=== PATIENT | female | born 2000 | race Caucasian/White ===

== ENCOUNTER 2021-01-22 13:58 | Outpatient (CLI) | payer OTHER, SELFPAY ==
--- NOTE | ~2021-01-22 | XR_ITS ---
EXAMINATION: XR soft tissue neck EXAM DATE: 01/22/2021 14:20 INDICATION: J35.2 - Hypertrophy of adenoids. TECHNIQUE: Frontal and lateral projections of the neck soft tissues. There is no prior study for co mparison. FINDINGS: Prevertebral, and adenoidal soft tissue appears to be within normal limits. Epiglottis nor mal in thickness. The odontoid process is intact. The lateral masses of C1 line up with C2. Thoracic Dickinson rods, evidence of mid thoracic dextroscoliosis. IMPRESSION: Normal-appearing adenoidal soft tissue. Reviewed, dictated and finalized at location A. 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
== END 2021-01-22 13:59 | disposition home or self-care (01) ==
PROVIDERS: PCP Family Medicine Sports Medicine; Visit Provider Otolaryngology
DX: J35.2 Hypertrophy of adenoids (principal)
CPT/HCPCS: 70360

== ENCOUNTER → 2021-04-25 00:57 | Outpatient (CLI) | payer OTHER, SELFPAY ==
[2021-04-25 19:38] LABS: SARS-CoV-2 RNA PCR Negative
== END ==
PROVIDERS: PCP Family Medicine Sports Medicine; Visit Provider Surgery
DX: Z01.812 Encounter for preprocedural laboratory examination (principal); Z20.822 Contact with and (suspected) exposure to COVID-19
CPT/HCPCS: C9803; U0003; U0005

== ENCOUNTER 2021-04-29 00:14 | Day surgery (SDC) | payer OTHER, SELFPAY ==
[2021-04-15 15:08] VITALS: BMI 35.4
--- NOTE | 2021-04-28 10:37 | WPDANESEPPF ---
Anes - Initial Pre Proc Eval Procedure: Operation Date: 04/29/21 12:00 Proposed Procedures p Excision Subcutaneous Mass Right Lower Back - Fortino Sousa MD Date/Time: 04/28/21 10:37 Surgeon: Fortino Sousa MD Pre Op Diagnosis: mass of right low back Patient Data Age: 20 Gender: F Height: 1.6 m Weight: 90.9 kg Allergies Allergy/AdvReac Type Severity Reaction Status Date / Time mold AdvReac Mild Rash Verified 04/15/21 15:08 Home Medications Medication Instructions Recorded Confirmed Type bupropion HCl 150 mg 24 hr tablet, 150 mg PO QAM 01/22/21 04/15/21 History extended release dicyclomine 20 mg tablet 20 mg PO TID PRN 01/22/21 04/15/21 History meclizine 25 mg tablet 25 mg PO TID PRN 01/22/21 04/15/21 History omeprazole 20 mg capsule,delayed 20 mg PO DAILY 01/22/21 04/15/21 History release atomoxetine 80 mg capsule 80 mg PO DAILY 03/19/21 04/15/21 History hydroxyzine HCl 10 mg tablet 10 mg PO TID PRN 03/19/21 04/15/21 History multivitamin 1 tablet PO DAILY 03/19/21 04/15/21 History buspirone 15 mg PO BID 04/15/21 04/15/21 History naproxen 500 mg PO Q6-8H PRN 04/15/21 04/15/21 History PMFSH Past Medical History Medical History (Updated 04/28/21 @ 10:38 by Hira Willams MD) Depression History of COVID-19 Hypertrophy of adenoids Obesity Palpable mass of lower back Surgical History Surgical History (Updated 03/19/21 @ 13:52 by Mechelle Plascencia CMA) H/O endoscopy History of back surgery [place] teeth removed Family History Family History Grandparent Heart disease Hypertension Social History Social History Smoking packs per day: 0.5 Smoking cigarettes per day: 10.0 Years smoked: 4 Smoking pack-years: 2.00 Smoking status: Former smoker Tobacco type: cigarettes Alcohol intake: current Substance use: current Substance use type: marijuana Other substance usage details: Marijuana card Last use: 04/14/21 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 Questions were solicited and answers provided to the satisfaction of the patient/family/POA.
[2021-04-29] MEDS: LACTATED RINGERS 1,000 ML 30 ML IV CONT (10:42)
[2021-04-29 11:00] VITALS: BP 106/71; PULSE 103; RESP 18; TEMP 36; O2SAT 100
--- NOTE | 2021-04-29 11:20 | WPDANESEPPF ---
Anes - Initial Pre Proc Eval Procedure: Operation Date: 04/29/21 12:00 Proposed Procedures p Excision Subcutaneous Mass Right Lower Back - Fortino Sousa MD Date/Time: 04/29/21 11:20 Surgeon: Fortino Sousa MD Pre Op Diagnosis: mass of right low back Patient Data Age: 20 Gender: F Height: 5 ft 3 in Weight: 53.4 kg Last Vital Signs Temp 36.0 C L 04/29/21 11:00 Pulse 103 H 04/29/21 11:00 Resp 18 04/29/21 11:00 BP 106/71 04/29/21 11:00 Pulse Ox 100 04/29/21 11:00 Allergies Allergy/AdvReac Type Severity Reaction Status Date / Time mold AdvReac Mild Rash Verified 04/15/21 15:08 Home Medications Medication Instructions Recorded Confirmed Type bupropion HCl 150 mg 24 hr tablet, 150 mg PO QAM 01/22/21 04/29/21 History extended release dicyclomine 20 mg tablet 20 mg PO TID PRN 01/22/21 04/29/21 History meclizine 25 mg tablet 25 mg PO TID PRN 01/22/21 04/29/21 History omeprazole 20 mg capsule,delayed 20 mg PO DAILY 01/22/21 04/29/21 History release atomoxetine 80 mg capsule 100 mg PO DAILY 03/19/21 04/29/21 History hydroxyzine HCl 10 mg tablet 10 mg PO TID PRN 03/19/21 04/29/21 History multivitamin 1 tablet PO DAILY 03/19/21 04/29/21 History buspirone 15 mg PO BID 04/15/21 04/29/21 History naproxen 500 mg PO Q6-8H PRN 04/15/21 04/29/21 History Patient hx anesthesia problems: none and other (motion sickness) Family hx anesthesia problems: none PMFSH Past Medical History Medical History Depression History of COVID-19 Hypertrophy of adenoids Obesity Palpable mass of lower back Surgical History Surgical History H/O endoscopy History of back surgery [place] teeth removed Family History Family History Grandparent Heart disease Hypertension Social History Social History Smoking packs per day: 0.5 Smoking cigarettes per day: 10.0 Years smoked: 4 Smoking pack-years: 2.00 Smoking status: Former smoker Tobacco type: cigarettes Alcohol intake: current Alcohol use details: once per month Substance use: current Substance use type: marijuana Other substance usage details: Marijuana card Last use: 04/14/21 Living arrangements: other 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 Questions were solicited and answers provided to the satisfaction of the patient/family/POA.
[2021-04-29] MEDS: SCOPOLAMINE 1.5 MG PATCH TRANSDERM (11:36)
--- NOTE | 2021-04-29 11:53 | PM.HPGS ---
History of Present Illness History of Present Illness Consent: Risks, benefits, and alternatives of removal of a lipoma right low back have been discussed and questions answered. Patient agrees to proceed with procedure. Chief complaint: mass of right low back Narrative: Danika Ledezma is a 20 year old female that presents to the office at the request of Dr Mcdermott for an evaluation of a right hip mass. I have reviewed these records. Patient reports she first noticed the mass in August 2020 , since then she has notice an increase in size. Patient thought it was a muscle knot and kept trying to massage it out and never went away but did not really bother her. However, over the last month she noticed having an achiness that she believes is caused from the mass. She reports she had COVID 19 in September 2020. Had respiratory symptoms, she reports that she is now taking ProAir inhaler as needed. She reports she did go ahead and has received the COVID 19 vaccine. Review of Systems Constitutional: Constitutional: Reports no additional constitutional complaints, Reports fatigue and Denies malaise Eyes: Eyes: Denies change in vision and Denies loss of vision ENT: Reports Normal hearing present, Denies change in voice, Denies dizziness, Denies hoarseness and Denies sore throat Cardiovascular: Cardiovascular: Denies chest pain, Denies leg edema and Denies dyspnea Respiratory: Respiratory: Denies cough, Denies dyspnea and Denies wheezing Gastrointestinal: Gastrointestinal: Denies hematochezia, Denies change in bowel habits and Denies heartburn Genitourinary: Genitourinary: Denies urinary frequency and Denies urinary incontinence Neurologic: Reports Normal hearing present, Denies confusion, Denies dizziness, Denies loss of vision, Denies memory loss and Denies seizure-like activity Psychiatric: Psychiatric: Denies confusion, Denies depression and Denies memory loss Endocrine: Endocrine: Denies cold intolerance and Reports fatigue Hematologic/Lymphatic: Hematologic/Lymphatic: Denies easy bleeding and Denies easy bruising Allergic/Immunologic: Allergic/Immunologic: Denies wheezing PMFSH Past Medical History Medical History Depression History of COVID-19 Hypertrophy of adenoids Obesity Palpable mass of lower back Surgical History Surgical History H/O endoscopy History of back surgery [place] teeth removed Family History Family History Grandparent Heart disease Hypertension Social History Social History Smoking packs per day: 0.5 Smoking cigarettes per day: 10.0 Years smoked: 4 Smoking pack-years: 2.00 Smoking status: Former smoker Tobacco type: cigarettes Alcohol intake: current Alcohol use details: once per month Substance use: current Substance use type: marijuana Other substance usage details: Marijuana card Last use: 04/14/21 Living arrangements: other 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 Spiritual care concerns: No Meds Home Medications and Allergies Home Medications Medication Instructions Recorded Confirmed Type bupropion HCl 150 mg 24 hr tablet, 150 mg PO QAM 01/22/21 04/29/21 History extended release dicyclomine 20 mg tablet 20 mg PO TID PRN 01/22/21 04/29/21 History meclizine 25 mg tablet 25 mg PO TID PRN 01/22/21 04/29/21 History omeprazole 20 mg capsule,delayed 20 mg PO DAILY 01/22/21 04/29/21 History release atomoxetine 80 mg capsule 100 mg PO DAILY 03/19/21 04/29/21 History hydroxyzine HCl 10 mg tablet 10 mg PO TID PRN 03/19/21 04/29/21 History multivitamin 1 tablet PO DAILY 03/19/21 04/29/21 History buspirone 15 mg PO BID 04/15/21 04/29/21 History naproxen 500 mg PO Q6-8H PRN 04/15/21 04/29/21 History Allergies Allergy
--- NOTE | 2021-04-29 12:00 | WPDHPUPDATE1 ---
History and Physical Update Update Date/Time: 04/29/21 12:00 History and Physical has been reviewed, including an updated exam of the patient. There are NO changes in the patient's condition. Risks, benefits, and alternatives have been discussed and questions answered. Patient agrees to proceed with procedure.
[2021-04-29] MEDS: ceFAZolin 2 GM/D5W 50 ML 2 GM/50 ML BAG IVPB (12:18)
[2021-04-29] MEDS: BUPIVACAINE/EPINEPHRINE 0.5% 10 ML VIAL 50 ML INFILTRATE (12:43)
[2021-04-29 13:30] VITALS: BP 100/57; PULSE 69; RESP 16; O2SAT 100
--- NOTE | 2021-04-29 13:53 | P.OP_ITS ---
Procedure Note - Detailed Date of Procedure 04/29/21 Pre-op Diagnosis Mass of right low back Post-op Diagnosis same Procedure Performed Excision of deep subcutaneous mass Rt. 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 Findings Patient had a deep subcutaneous lipoma which after complete excision appears to have been about 3 x 3 cm in size with perhaps a necrotic center. There appeared to be inspissated necrotic fat in the center of what I felt was the final specimen this was specimen A and it was marked with a suture near the suspected area of fat necrosis. Description of Procedure The patient was placed in the left lateral decubitus position. After a surgical time out confirming patient and procedure the patient was prepped and draped in the usual sterile fashion. Local anesthetic was administered subcutaneously in a straight transverse line directly over the palpable mass. The lesion measured 4 X 2 cm. I dissected straight down to the deep subcutaneous tissues until I ran into a thin capsule that appeared to be the capsule surrounding the lipoma and then I completely excised the lesion with some surrounding subcutaneous fat. The lipoma seemed to be friable and broke into several pieces. Bleeding was controlled with electrocautery. I then placed my index finger into the space created by the excision. There felt to be a 3 X 3 cm thick area of more fat , so I grasped this with an Debby clamp and then completely excised it with Bovie cautery. Upon removal the fat and a 1 cm area of hard nodular tissue was seen and I suspect this is the residual of fat necrosis. I placed a single black silk suture on this area and sent it as specimen A or # 1 and called it the lipoma associated with a suspected raymond of fat necrosis. The wound was closed in several layers. I used un-dyed 2-0 Vicryl deep subcutaneous sutures to obliterate the space created by the excision and then superficial subcutaneous/ dermal sutures to approximate the wound and then a 3-0 undyed Monocryl running subcuticular closure was completed at the skin level. Surgical glue applied as dressing. Patient tolerated this well. Implants none Estimated Blood Loss -5.0 Drains No Packing No Pathology yes (1.Deep subcutaneous Rt. lower back mass with suspected necrotic center.(suture on the necrotic area) 2. Subcutaneous tissue and lipoma of Rt. lower back) Complications No immediate complications Condition stable Disposition same day
[2021-04-29 14:00] VITALS: BP 118/60; PULSE 65
[2021-04-29 14:30] VITALS: BP 111/76; PULSE 69
== END 2021-04-29 14:50 | disposition home or self-care (01) ==
PROVIDERS: PCP Family Medicine Sports Medicine; Visit Provider Surgery
PROC: (CPT 21931; principal; 2021-04-29 12:00)
DX: D17.1 Benign lipomatous neoplasm of skin and subcutaneous tissue of trunk (principal); F32.9 Major depressive disorder, single episode, unspecified; Z86.16 Personal history of COVID-19; Z87.891 Personal history of nicotine dependence; F12.90 Cannabis use, unspecified, uncomplicated
CPT/HCPCS: 21931; 88304; A9270; C9803; J0690; J2250; J2704; J3010; J7120; U0003; U0005

== ENCOUNTER 2022-01-15 09:44 | Outpatient (CLI) | payer OTHER, SELFPAY ==
--- NOTE | ~2022-01-15 | XR_ITS ---
EXAMINATION: XR chest 2V 01/15/2022 09:57 INDICATION: Shortness of breath. History of Covid. PROCEDURE: 2 view chest COMPARISON: No prior studies for comparison FINDINGS: The lungs are clear. The cardiomediastinal silhouette is within normal limits. There are no pleural effusions. There is no pneumothorax suspected. There are thoracic spinal rods with pedic ular screws. Dextroscoliosis. IMPRESSION: 1: NO ACUTE CARDIOPULMONARY DISEASE. Reviewed, dictated and finalized at location B. 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
--- NOTE | 2022-01-18 13:04 | WPDPFTINT ---
PFT Procedure Performed PFT Procedure Performed Spirometry with Pre/Post Bronchodilator Plethysmography (Lung Vol) Diffusing Cap (DLCO) Flow Vol Loop PFT Interpretation Lung volumes were measured with the body plethysmography method. Lung volumes are unremarkable. Spirometry showed normal FVC and FEV1, borderline normal FEV1 to FVC ratio, and diminished mid expiratory flow rates. Following administration of a bronchodilator there was a borderline increase in the FEV 1. Lung diffusion capacity is borderline normal. The flow volume loop is consistent with a small airway disease. Impression: Mild obstructive airway disease in the form of small airway disease with borderline response to bronchodilators. Borderline normal lung diffusion capacity.
== END 2022-01-15 09:45 | disposition home or self-care (01) ==
LOC: ANHPFT 09:46
PROVIDERS: PCP Internal Medicine; Visit Provider Family Medicine
DX: R06.00 Dyspnea, unspecified (principal); R94.2 Abnormal results of pulmonary function studies
CPT/HCPCS: 71046; 94060; 94726; 94729

== ENCOUNTER → 2022-03-22 | Outpatient (CLI) | payer OTHER, SELFPAY ==
--- NOTE | 2022-03-30 16:37 | WPDSLEEPSTUD ---
Sleep Study Date of Study: 03/22/22 Ordering Provider: Vicki Espinoza DO Interpreting Physician: Vicki Espinoza DO Sleep Study Type: Polysomnogram Height: 1.6 m Weight: 93.44 kg Body Mass Index: 36.5 Neck Circumference (inches): 14.5 [place]: 16 Reason for Sleep Study Excessive daytime sleepiness Sleep History The patient is a 21-year-old female with anxiety, depression, bipolar disorder, GERD, IBS, scoliosis, small airway disease and seasonal allergies that had a PSG followed by an MSLT ordered for evaluation excessive daytime sleepiness. The patient had a PSG on 03/18/2021 at [facility]. The patient had a total sleep time of 387.5 minutes and a sleep efficiency of 94.5%. The patient slept in the lateral position throughout the entire study. The patient had an overall AHI of 0.3. She had a sleep latency of 3.5 minutes and a REM latency of 229 minutes. It was recommended that she have a MSLT for further evaluation of her hypersomnia. 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 She denies awakening from sleep short of breath. She rarely awakens at night with heartburn, belching or cough. She constantly snores loud enough that others complain. She rarely has trouble sleeping when she has a cold. She denies waking up gasping for air throughout the night. She denies having breathing problems at night observed by herself or others. She rarely sweats excessively at night. She denies having heart palpitations or irregular heartbeats during the night. She frequently falls asleep during the day but never while driving. She occasionally falls asleep when laughing or crying. She denies experiencing loss of muscle tone when extremely emotional. She constantly has trouble at school or work due to sleepiness. She denies feeling unable to move when waking up her falling asleep. She occasionally experiences vivid dreamlike scenes upon awakening or falling asleep. She denies feeling afraid of going to sleep. She rarely has nightmares. She frequently remembers her dreams. She constantly has thoughts racing through her mind. She constantly feels sad or depressed. She constantly has anxiety. She frequently has muscular tension. She occasionally notices parts of her body jerk. She denies kicking during the night. She denies having crawling and aching feelings in her legs. She denies having leg pain during the night. She rarely grinds her teeth during sleep and rarely awakens with morning jaw pain. She denies being bothered by pain during the day and being awakened by pain during the night. She denies waking up feeling stiff in the morning. She denies waking up with sore or achy muscles. She denies waking up with pain in the neck, spine or other joints. The patient goes to bed at 9:00 a.m. on the weekdays and anywhere from 11:00 p.m. to 1:00 a.m. on weekends. She is able to fall asleep quickly. She does not typically wake up throughout the night. She does, it is to use the restroom. She wakes up at 5:30 p.m. on the weekdays. She does not have a set wake-up time on the weekends. She will stay in bed for 20 minutes after waking up in morning. 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 She currently lives with her girlfriend. She does not consume any caffeinated tea within 2 hours of bedtime. She does not engage in physical exercise before bedtime. She will read and watch television before falling asleep. She will take naps in the afternoon or the evening but they are not refreshing. She quit smoking cigarettes 2 years ago. She will drink 1 caffeinated beverage throughout the day. She will have 1 alcoholic beverage per month. She will smoke marijuana. [facility] Past Medical History Medical History ADHD Allergies Anxiety Bipolar disorder Bulging disc 05/2021 COVID-19 09/2020 Depression GERD (gastroesophageal reflux disease) Hist
[2022-03-30 16:39] VITALS: BMI 36.5
--- NOTE | 2022-03-30 17:07 | WPDSLEEPSTUD ---
Sleep Study Date of Study: 03/22/22 Ordering Provider: Vicki Espinoza DO Interpreting Physician: Vicki Espinoza DO Sleep Study Type: Multiple Sleep Latency Test Height: 1.6 m Weight: 93.44 kg Body Mass Index: 36.5 Neck Circumference (inches): 14.5 [place]: 16 Reason for Sleep Study Excessive daytime sleepiness Sleep History Please see sleep history on PSG report from the previous night. [facility] Past Medical History Medical History ADHD Allergies Anxiety Bipolar disorder Bulging disc 05/2021 COVID-19 09/2020 Depression GERD (gastroesophageal reflux disease) History of COVID-19 Hypertrophy of adenoids IBS (irritable bowel syndrome) Obesity Palpable mass of lower back Scoliosis Surgery 2012 Surgical History Surgical History H/O endoscopy H/O excision of mass Excision of deep subcutaneous lipoma Rt. lower back -04/29/2021 History of back surgery Ancelmo placement 2012 [place] teeth removed 2019 Family History Family History Grandparent Heart disease Hypertension Cancer Father Alcoholism Depression Mother Alcoholism Depression Sibling Depression Other Pulmonary embolism Social History Social History Smoking packs per day: 0.5 Smoking cigarettes per day: 10.0 Years smoked: 4 Smoking pack-years: 2.00 Smoking status: Former smoker Tobacco type: cigarettes Smoking end date: 10/21/19 Alcohol intake: current Alcohol use details: once per month Substance use: current Substance use type: marijuana Other substance usage details: Marijuana card- Smoking marijuana Last use: 04/14/21 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 Spiritual care concerns: No Medications Home Medications Medication Instructions Recorded Confirmed Type omeprazole 20 mg capsule,delayed 20 mg PO DAILY 01/22/21 01/27/22 History release buspirone 15 mg PO BID 04/15/21 01/27/22 History albuterol sulfate 90 mcg/actuation 1 puff INHALATION Q4H PRN 12/30/21 01/27/22 History aerosol inhaler aripiprazole 15 mg tablet 15 mg PO DAILY 12/30/21 01/27/22 History divalproex 250 mg tablet,delayed 250 mg PO Q12H 12/30/21 01/27/22 History release hydroxyzine HCl 50 mg tablet 50 mg PO QID PRN 12/30/21 01/27/22 History meclizine 25 mg tablet 25 mg PO TID PRN #90 tablet 12/30/21 01/27/22 Rx naproxen 500 mg tablet 500 mg PO TID PRN tablet 12/30/21 01/27/22 History propranolol 10 mg tablet 10 mg PO DAILY tablet 12/30/21 01/27/22 History budesonide-formoterol HFA 160 2 puff INHALATION Q12H #10.2 g 01/28/22 Rx mcg-4.5 mcg/actuation aerosol inhaler Sleep Procedure The recording montage for the MSLT includes central EEG (C3-A2, C4-A1) and occipital (O1-A2, O2-A1) derivations, left and right eye electrooculograms (EOGs), mental/submental electromyogram (EMG), and electrocardiogram (EKG). Nap 1 commenced at 6:27:03 AM. There was no sleep onset. Nap 1 was terminated at 6:47:25 AM. The patient said that sleep did not occur. Nap 2 commenced at 8:33:09 AM. Sleep onset was 14 minutes 51 seconds. REM sleep was not achieved. Nap 2 was terminated at 9:03:12 AM. The patient said that sleep did not occur. Nap 3 commenced at 10:28:02 AM. Sleep onset was 5 minutes 58 seconds. REM sleep was not achieved. Nap 3 was terminated at 10:49:29 AM. The patient was unsure if she fell asleep. Nap 4 commenced at 12:32:04 PM. Sleep onset was 12 minutes 26 seconds. REM sleep was not achieved. Nap 4 was terminated at 12:59:59 PM. The patient said that sleep occurred but no dreaming. Nap 5 commenced at 2:35:03 PM. There was no sleep onset. Nap 5 was terminated at 2:55:28 PM. The patient said that sleep did not occur. The mean sleep latency is 14 minutes 39 se
[2022-03-30 17:40] VITALS: BMI 36.5
== END | disposition home or self-care (01) ==
PROVIDERS: PCP Family Medicine; Visit Provider Family Medicine
DX: G47.10 Hypersomnia, unspecified (principal)
CPT/HCPCS: 95805; 95810

== ENCOUNTER 2022-06-09 11:33 | Outpatient (CLI) | payer OTHER, SELFPAY ==
[2022-06-09 19:07] LABS: Alanine Aminotransferase 24 U/L (6-35); Albumin Level 4.3 g/dL (3.5-5.1); Alkaline Phosphatase 66 U/L (38-126); Anion Gap 7 mmol/L (8-16); Aspartate Amino Transferase 45 U/L (14-36); Bilirubin,Total 0.3 mg/dL (0.2-1.3); Blood Urea Nitrogen 9 mg/dL (7-17); Calcium 9.7 mg/dL (8.4-10.2); Carbon Dioxide 29 mmol/L (22-30); Chloride 103 mmol/L (98-107); Cholesterol 218 mg/dL (0-200); Estimated Glomerular Filt Rate > 60; Glucose 86 mg/dL (65-110); HDL Direct 47 mg/dL; Sodium 139 mmol/L (137-145); Triglycerides 110 mg/dL (<150)
[2022-06-09 19:15] LABS: Basophils Percent Auto 0.3 % (0.2-1.2); Eosinophils Absolute Auto 0.1 K/mm3 (0-0.3); Eosinophils Percent Auto 1.9 % (0-4.4); Hemoglobin 13.1 g/dL (12.0-15.0); Immature Granulocyte Absolute 0.04 K/mm3 (0.00-0.031); Immature Granulocyte Percent A 0.6 % (0-0.5); Lymphocytes Absolute Auto 2.86 K/mm3 (0.9-3.2); Lymphocytes Percent Auto 44.5 % (18.3-44.2); Mean Corpuscular HGB Conc 33.6 g/dl (32-36); Mean Corpuscular Hemoglobin 30.3 pg (26-34); Mean Corpuscular Volume 90.1 fl (80-100); Mean Platelet Volume 8.7 fl (7.4-10.4); Monocytes Absolute Auto 0.5 K/mm3 (0.1-0.6); Monocytes Percent Auto 7.6 % (2.6-8.5); Neutrophils Absolute Auto 2.9 K/mm3 (1.3-6.7); Neutrophils Percent Auto 45.1 % (45.5-73.1); Platelet Count Result 350 k/mm3 (150-375); Red Blood Count 4.33 M/mm3 (4.2-5.4); Red Cell Distribution Width 12.7 % (11.5-14.5); White Blood Count 6.4 K/mm3 (4.5-10.0)
[2022-06-09 19:17] LABS: LDL Cholesterol Direct 132 mg/dL
[2022-06-09 19:37] LABS: Hemoglobin A1C 4.6 % (<5.7)
[2022-06-09 19:54] LABS: Valproic Acid 28.9 ug/mL (50-120)
[2022-06-09 20:06] LABS: Vitamin D 25 Hydroxy 30.9 ng/mL
== END 2022-06-09 11:34 | disposition home or self-care (01) ==
LOC: ANHGOSHLAB 11:35
PROVIDERS: PCP Family Medicine; Visit Provider Family Medicine
DX: R73.9 Hyperglycemia, unspecified (principal); R53.83 Other fatigue; Z13.220 Encounter for screening for lipoid disorders; Z51.81 Encounter for therapeutic drug level monitoring; Z79.899 Other long term (current) drug therapy; E55.9 Vitamin D deficiency, unspecified
CPT/HCPCS: 36415; 80053; 80061; 80164; 82306; 83036; 85025

== ENCOUNTER → 2022-10-28 09:30 | Outpatient (CLI) | payer OTHER, SELFPAY ==
--- NOTE | ~2022-10-28 | XR_ITS ---
XR lumbar spine min 4V DATE: 10/28/2022 09:57 INDICATION: Lumbago, sciatica TECHNIQUE: AP, lateral, bilateral oblique views, coned lateral lumbosacral view COMPARISON: None FINDINGS: Bilateral thoracolumbar pedicle screws and rods are noted terminating at L1. There is 30 degrees rotatory levoscoliosis measured from L1 to L4. There is dextro scoliosis of the thoracic spine. No fracture or bone destruction is evident. No spondylolisthesis. Lumbar and lumbosacral interspaces are relatively preserved. The sacroiliac joints are intact. IMPRESSION: Approximately 30 degrees rotatory levoscoliosis of the lumbar spine Dextroscoliosis of the thoracic spine Thoracolumbar pedicle screws and rods terminating at L1 Reviewed, dictated and finalized at location B. 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
== END ==
PROVIDERS: PCP Family Medicine; Visit Provider Family Medicine
DX: M54.40 Lumbago with sciatica, unspecified side (principal)
CPT/HCPCS: 72110

== ENCOUNTER 2023-05-26 11:36 | Outpatient (CLI) | payer OTHER, SELFPAY ==
[2023-05-26 19:12] LABS: Valproic Acid 26.8 ug/mL (50-120)
[2023-05-26 19:23] LABS: Sodium 140 mmol/L (137-145)
[2023-05-26 19:24] LABS: Free T4 Free Thyroxine 0.86 ng/mL (0.78-2.19)
[2023-05-26 19:37] LABS: Basophils Absolute Auto 0.1 K/mm3 (0.0-0.1); Basophils Percent Auto 0.8 % (0.2-1.2); Eosinophils Absolute Auto 0.1 K/mm3 (0-0.3); Eosinophils Percent Auto 1.2 % (0-4.4); Hematocrit 37.5 % (37.0-47.0); Hemoglobin 12.7 g/dL (12.0-15.0); Immature Granulocyte Absolute 0.04 K/mm3 (0.00-0.031); Immature Granulocyte Percent A 0.5 % (0-0.5); Lymphocytes Absolute Auto 2.37 K/mm3 (0.9-3.2); Lymphocytes Percent Auto 31.2 % (18.3-44.2); Mean Corpuscular HGB Conc 33.9 g/dl (32-36); Mean Corpuscular Hemoglobin 30.9 pg (26-34); Mean Corpuscular Volume 91.2 fl (80-100); Monocytes Absolute Auto 0.6 K/mm3 (0.1-0.6); Monocytes Percent Auto 7.4 % (2.6-8.5); Neutrophils Absolute Auto 4.5 K/mm3 (1.3-6.7); Neutrophils Percent Auto 58.9 % (45.5-73.1); Platelet Count Result 288 k/mm3 (150-375); Red Blood Count 4.11 M/mm3 (4.2-5.4); Red Cell Distribution Width 12.6 % (11.5-14.5); White Blood Count 7.6 K/mm3 (4.5-10.0)
[2023-05-26 20:12] LABS: Alanine Aminotransferase 21 U/L (6-35); Albumin Level 4.3 g/dL (3.5-5.1); Alkaline Phosphatase 64 U/L (38-126); Anion Gap 6 mmol/L (8-16); Aspartate Amino Transferase 33 U/L (14-36); Bilirubin,Total 0.4 mg/dL (0.2-1.3); Blood Urea Nitrogen 11 mg/dL (7-17); Calcium 9.3 mg/dL (8.4-10.2); Carbon Dioxide 31 mmol/L (22-30); Chloride 103 mmol/L (98-107); Estimated Glomerular Filt Rate > 60; Glucose 77 mg/dL (65-110); Potassium 4.5 mmol/L (3.4-5.0)
== END 2023-05-26 11:37 | disposition home or self-care (01) ==
LOC: ANHGOSHLAB 11:37
PROVIDERS: PCP Family Medicine; Visit Provider Family Medicine
DX: R00.2 Palpitations (principal); R42 Dizziness and giddiness; F31.9 Bipolar disorder, unspecified; Z79.899 Other long term (current) drug therapy
CPT/HCPCS: 36415; 80053; 80164; 84439; 84443; 85025

== ENCOUNTER 2023-12-07 12:35 | Emergency (ER) | payer OTHER, SELFPAY ==
[2023-12-07 12:41] VITALS: BP 149/85; PULSE 74; RESP 16; TEMP 36.8; O2SAT 100
[2023-12-07] MEDS: SODIUM CHLORIDE 0.9% IV 1,000 ML 999 ML IV CONT (13:29)
[2023-12-07] MEDS: METOCLOPRAMIDE HCL INJ 10 MG/2 ML VIAL IV PUSH (13:29)
[2023-12-07] MEDS: diphenhydrAMINE HCl INJ 50 MG/ML VIAL IV PUSH (13:29)
[2023-12-07] MEDS: KETOROLAC 15 MG/ML VIAL (*BKC) IV PUSH (13:29)
--- NOTE | 2023-12-07 14:27 | ED.HA ---
HPI - Headache General Chief Complaint: Headache Stated Complaint: migraine Time Seen by Provider: 12/07/23 12:56 History of Present Illness HPI Narrative: Patient is a 23-year-old female who presents to the emergency department this afternoon complaining of a migraine headache. Patient admits that she does have a history of migraine headaches and takes a triptan for them but sometimes when that does not alleviate her headaches she comes in and gets a migraine cocktail. Patient states that this is her usual migraine headaches and denies any worse headache of her life sensation. Patient denies any additional symptoms including chest pain, shortness of breath, nausea, vomiting, abdominal pain, dysuria, hematuria, constipation, diarrhea, melena, hematochezia, fevers or chills. Patient also denies any dizziness, lightheadedness, blurry visions, focal weakness, numbness and or tingling. There are no other modifying, alleviating, or precipitating factors at this time. Related Data Home Medications Medication Instructions Recorded Confirmed omeprazole 20 mg capsule,delayed 20 mg PO DAILY 01/22/21 05/26/23 release hydroxyzine HCl 50 mg tablet 50 mg PO QID PRN 12/30/21 05/26/23 naproxen 500 mg tablet 500 mg PO TID PRN 12/30/21 05/26/23 Allergies Allergy/AdvReac Type Severity Reaction Status Date / Time sertraline [From Zoloft] AdvReac Intermediate Nausea and Verified 12/07/23 12:43 Vomiting mold AdvReac Mild Rash Verified 12/07/23 12:43 Review of Systems Review of Systems: All systems are reviewed and are negative unless stated otherwise in the HPI. [facility] Past Medical History Medical History ADHD Allergies Anxiety Bipolar disorder Bulging disc 05/2021 COVID-19 09/2020 Depression GERD (gastroesophageal reflux disease) History of COVID-19 Hypertrophy of adenoids IBS (irritable bowel syndrome) Migraine Obesity Palpable mass of lower back Scoliosis Surgery 2012 Surgical History Surgical History H/O endoscopy H/O excision of mass Excision of deep subcutaneous lipoma Rt. lower back -04/29/2021 H/O toe surgery Procedure 06/08/2022 on ingrown nails. History of back surgery Ancelmo placement 2012 [place] teeth removed 2019 Family History Family History Grandparent Heart disease Hypertension Cancer Father Alcoholism Depression Mother Alcoholism Depression Sibling Depression Other Pulmonary embolism Social History Social History Smoking packs per day: 0.5 Smoking cigarettes per day: 10.0 Years smoked: 4 Smoking pack-years: 2.00 Smoking status: Former smoker Tobacco type: cigarettes Smoking end date: 10/21/19 Alcohol intake: current Alcohol use details: once per month Substance use: current Substance use type: marijuana Other substance usage details: Marijuana card- Smoking marijuana Last use: 04/14/21 Lack of Transportation: No Lack of Food: Never True Current Housing: I Have Housing Concerned About Future Housing: No Difficulty Paying Gas/Electric Bills: No Difficulty Paying for Meds: No Currently Unemployed: No Education: Associate Degree Difficulty w/ Childcare or Family Care: No Living arrangements: other Occupation/Education: occupation 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 HEENT: PERRL, no rhinorrhea, no post nasal drip, oropharynx clear, no temporal tenderness. Neck: Trachea midline, no JVD, no lymphadenopathy. Cardiovascular: Regular rate and rhythm, no murmurs, rubs or gallops, no peripheral edema. Respiratory: Clear to auscultation bilaterally, no tachypnea, no wheezing, no rhonchi, no
[2023-12-07 14:42] VITALS: BP 130/77; PULSE 66; RESP 20; O2SAT 100
== END 2023-12-07 14:44 | disposition home or self-care (01) ==
PROVIDERS: Emergency Provider Emergency Medicine; PCP Family Medicine
DX: G43.909 Migraine, unspecified, not intractable, without status migrainosus (principal); Z87.891 Personal history of nicotine dependence; F90.9 Attention-deficit hyperactivity disorder, unspecified type; F41.9 Anxiety disorder, unspecified; F31.9 Bipolar disorder, unspecified; K21.9 Gastro-esophageal reflux disease without esophagitis
CPT/HCPCS: 96361; 96374; 96375; 99284; J1200; J1885; J2765; J7030

== ENCOUNTER 2023-12-09 10:31 | Emergency (ER) | payer OTHER, SELFPAY ==
[2023-12-09 10:53] VITALS: BP 130/80; PULSE 64; RESP 18; TEMP 37.2; O2SAT 99
--- NOTE | 2023-12-09 11:45 | ED.GENADULT ---
HPI - General Adult General Chief complaint: Headache Stated complaint: Migrane Time Seen by Provider: 12/09/23 11:09 Source: patient Mode of arrival: ambulatory Limitations: no limitations History of Present Illness HPI narrative: This is a 23-year-old female who presents to the ED with chief complaint of migraine headache past 11 days. Reports she was seen here migraine cocktail that helped a little bit but did not resolve her symptoms. Reports she has taken [id number] as well as her Triptan at home since discharge and the headache seems to be continuing. Reports location is top of the scalp and into the occiput. Reports photophobia. States that this headache is a little different than her normal once that she is having more pain compared to her normal ones where she has vertigo . Denies numbness, weakness, speech change, vision change, fever, chill, nausea, vomiting. Related Data Home Medications Medication Instructions Recorded Confirmed omeprazole 20 mg capsule,delayed 20 mg PO DAILY 01/22/21 05/26/23 release hydroxyzine HCl 50 mg tablet 50 mg PO QID PRN 12/30/21 05/26/23 naproxen 500 mg tablet 500 mg PO TID PRN 12/30/21 05/26/23 Allergies Allergy/AdvReac Type Severity Reaction Status Date / Time sertraline [From Zoloft] AdvReac Intermediate Nausea and Verified 12/07/23 12:43 Vomiting mold AdvReac Mild Rash Verified 12/07/23 12:43 Review of Systems Review of Systems: All systems as dictated in [facility] Past Medical History Medical History ADHD Allergies Anxiety Bipolar disorder Bulging disc 05/2021 COVID-19 09/2020 Depression GERD (gastroesophageal reflux disease) History of COVID-19 Hypertrophy of adenoids IBS (irritable bowel syndrome) Migraine Obesity Palpable mass of lower back Scoliosis Surgery 2012 Surgical History Surgical History H/O endoscopy H/O excision of mass Excision of deep subcutaneous lipoma Rt. lower back -04/29/2021 H/O toe surgery Procedure 06/08/2022 on ingrown nails. History of back surgery Ancelmo placement 2012 [place] teeth removed 2019 Family History Family History Grandparent Heart disease Hypertension Cancer Father Alcoholism Depression Mother Alcoholism Depression Sibling Depression Other Pulmonary embolism Social History Social History Smoking packs per day: 0.5 Smoking cigarettes per day: 10.0 Years smoked: 4 Smoking pack-years: 2.00 Smoking status: Former smoker Tobacco type: cigarettes Smoking end date: 10/21/19 Alcohol intake: current Alcohol use details: once per month Substance use: current Substance use type: marijuana Other substance usage details: Marijuana card- Smoking marijuana Last use: 04/14/21 Lack of Transportation: No Lack of Food: Never True Current Housing: I Have Housing Concerned About Future Housing: No Difficulty Paying Gas/Electric Bills: No Difficulty Paying for Meds: No Currently Unemployed: No Education: Associate Degree Difficulty w/ Childcare or Family Care: No Living arrangements: other Occupation/Education: occupation 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 HEAD: Normocephalic, atraumatic. EYES: PERRLA and EOMI. ENT: Nares clear, no rhinorrhea or epistaxis. Mucous membranes moist. Oropharynx without tonsillar hypertrophy exudate or other lesions. NECK: Supple. No adenopathy or masses. No meningeal signs. CHEST: No respiratory distress. Clear to auscultation. No wheezes rales or rhonchi HEART: Regular rate and rhythm. No murmur heard. Normal peripheral pulses. ABDOMEN: Soft
[2023-12-09] MEDS: PROMETHAZINE HCL 25 MG/ML AMPUL 12.5 MG IV PUSH (11:57)
[2023-12-09 12:01] VITALS: BP 115/68; O2SAT 100
[2023-12-09] MEDS: PROCHLORPERAZINE EDISYLATE 10 MG/2 ML VIAL IV PUSH (12:10)
[2023-12-09] MEDS: SODIUM CHLORIDE 0.9% IV 1,000 ML 999 ML IV CONT (12:10)
[2023-12-09] MEDS: diphenhydrAMINE HCl INJ 50 MG/ML VIAL 25 MG IV PUSH (12:10)
[2023-12-09] MEDS: MAGNESIUM SULF 2 GM/WATER 50ML 2 GM/50 ML BAG IVPB (12:11)
[2023-12-09] MEDS: KETOROLAC 15 MG/ML VIAL (*BKC) IV PUSH (12:16)
[2023-12-09 12:23] LABS: Basophils Percent Auto 0.5 % (0.2-1.2); Eosinophils Absolute Auto 0.1 K/mm3 (0-0.3); Eosinophils Percent Auto 1.2 % (0-4.4); Hematocrit 37.6 % (37.0-47.0); Hemoglobin 13.1 g/dL (12.0-15.0); Immature Granulocyte Absolute 0.06 K/mm3 (0.00-0.031); Immature Granulocyte Percent A 0.7 % (0-0.5); Lymphocytes Absolute Auto 2.73 K/mm3 (0.9-3.2); Lymphocytes Percent Auto 33.9 % (18.3-44.2); Mean Corpuscular HGB Conc 34.8 g/dl (32-36); Mean Corpuscular Volume 88.9 fl (80-100); Mean Platelet Volume 8.3 fl (7.4-10.4); Monocytes Absolute Auto 0.5 K/mm3 (0.1-0.6); Monocytes Percent Auto 5.6 % (2.6-8.5); Neutrophils Absolute Auto 4.7 K/mm3 (1.3-6.7); Neutrophils Percent Auto 58.1 % (45.5-73.1); Platelet Count Result 344 k/mm3 (150-375); Red Blood Count 4.23 M/mm3 (4.2-5.4); Red Cell Distribution Width 12.7 % (11.5-14.5); White Blood Count 8.1 K/mm3 (4.5-10.0)
[2023-12-09 12:32] LABS: Alanine Aminotransferase 22 U/L (6-35); Albumin Level 4.5 g/dL (3.5-5.1); Alkaline Phosphatase 83 U/L (38-126); Anion Gap 7 mmol/L (8-16); Aspartate Amino Transferase 25 U/L (14-36); Bilirubin,Total 0.5 mg/dL (0.2-1.3); Blood Urea Nitrogen 12 mg/dL (7-17); Calcium 9.9 mg/dL (8.4-10.2); Carbon Dioxide 28 mmol/L (22-30); Chloride 104 mmol/L (98-107); Estimated Glomerular Filt Rate > 60; Glucose 91 mg/dL (65-110); Potassium 4.3 mmol/L (3.4-5.0); Sodium 139 mmol/L (137-145)
[2023-12-09 13:15] VITALS: BP 117/76; O2SAT 100
[2023-12-09 13:58] VITALS: BP 137/87; PULSE 90; RESP 18; O2SAT 98
== END 2023-12-09 14:00 | disposition home or self-care (01) ==
PROVIDERS: Emergency Provider Physician Assistant; PCP Family Medicine
DX: G43.909 Migraine, unspecified, not intractable, without status migrainosus (principal); K21.9 Gastro-esophageal reflux disease without esophagitis; K58.9 Irritable bowel syndrome, unspecified; E66.9 Obesity, unspecified; F90.9 Attention-deficit hyperactivity disorder, unspecified type; F31.9 Bipolar disorder, unspecified; F41.9 Anxiety disorder, unspecified; Z86.16 Personal history of COVID-19; Z87.891 Personal history of nicotine dependence
CPT/HCPCS: 36415; 80053; 85025; 96365; 96375; 99284; J0780; J1200; J1885; J2550; J3475; J7030

== ENCOUNTER 2024-02-01 10:03 | Outpatient (CLI) | payer OTHER, SELFPAY ==
[2024-02-01 11:50] LABS: Cholesterol 199 mg/dL (0-200); HDL Direct 39 mg/dL; Triglycerides 132 mg/dL (<150)
[2024-02-01 12:01] LABS: LDL Cholesterol Direct 135 mg/dL
[2024-02-01 12:18] LABS: Free T4 Free Thyroxine 0.86 ng/mL (0.78-2.19); Vitamin D 25 Hydroxy 57.5 ng/mL
[2024-02-04 06:39] LABS: Thyroid Peroxidase Antibodies <1 IU/mL (<9)
== END 2024-02-01 10:04 | disposition home or self-care (01) ==
LOC: ANHGOSHLAB 10:05
PROVIDERS: PCP Family Medicine; Visit Provider Family Medicine
DX: E78.5 Hyperlipidemia, unspecified (principal); E55.9 Vitamin D deficiency, unspecified; R79.89 Other specified abnormal findings of blood chemistry
CPT/HCPCS: 36415; 80061; 82306; 84439; 84443; 86376; 86800

== ENCOUNTER 2024-09-12 10:22 | Emergency (ER) | payer OTHER, SELFPAY ==
[2024-09-12 10:34] VITALS: BP 121/78; PULSE 82; RESP 16; TEMP 36.4; O2SAT 98
--- NOTE | 2024-09-12 10:38 | ED.URI ---
HPI - URI/Sore Throat General Chief Complaint: Upper Respiratory Infection Stated Complaint: sore throat / headache Time Seen by Provider: 09/12/24 10:40 Source: patient and RN notes reviewed Mode of arrival: ambulatory Limitations: no limitations History of Present Illness HPI Narrative: 24-year-old female presents with concern of for postnasal drainage, sore throat. Reports she felt warm and has some body aches. She has not taken her temperature. She has not taken any [id number] medications. MD elicited complaint: sore throat and rhinorrhea Related Data Home Medications Medication Instructions Recorded Confirmed hydroxyzine HCl 50 mg tablet 50 mg PO QID 12/30/21 09/12/24 desvenlafaxine succinate 25 mg 25 mg PO DAILY 03/13/24 09/12/24 tablet,extended release 24 hr rimegepant 75 mg disintegrating 75 mg PO DAILY PRN Migraine 09/12/24 09/12/24 tablet (Nurtec ODT) Headache Allergies Allergy/AdvReac Type Severity Reaction Status Date / Time sertraline [From Zoloft] AdvReac Intermediate Nausea and Verified 09/12/24 10:40 Vomiting mold AdvReac Mild Rash Verified 09/12/24 10:40 Review of Systems Review of Systems: CONSTITUTIONAL: Reports malaise, tactile fever. EYES: Denies visual changes, redness, or discharge. ENT: Reports rhinorrhea, congestion, and sore throat. CARDIOVASCULAR: Denies chest pain, palpitations, or edema. RESPIRATORY: Denies cough. Denies dyspnea. GASTROINTESTINAL: Denies abdominal pain, nausea, vomiting, diarrhea SKIN: Denies rash or itching. MUSCULOSKELETAL: Denies myalgia. NEUROLOGIC: Denies headache. All systems reviewed & are unremarkable except as noted in HPI and below PMFSH Past Medical History Medical History (Updated 09/12/24 @ 10:49 by Anjali Black NP) ADHD Allergies Anxiety Bipolar disorder Bulging disc 05/2021 COVID-19 09/2020 Depression GERD (gastroesophageal reflux disease) History of COVID-19 Hypertrophy of adenoids IBS (irritable bowel syndrome) Migraine Obesity Palpable mass of lower back Scoliosis Surgery 2013 Surgical History Surgical History H/O endoscopy H/O excision of mass Excision of deep subcutaneous lipoma Rt. lower back -04/29/2021 H/O toe surgery Procedure 06/08/2022 on ingrown nails. History of back surgery Ancelmo placement 2012 [place] teeth removed 2019 Family History Family History Grandparent Heart disease Hypertension Cancer Father Alcoholism Depression Mother Alcoholism Depression Sibling Depression Other Pulmonary embolism Social History Social History Smoking packs per day: 0.5 Smoking cigarettes per day: 10.0 Years smoked: 4 Smoking pack-years: 2.00 Smoking status: Former smoker Tobacco type: cigarettes Smoking end date: 10/21/19 Alcohol intake: current Alcohol use details: once per month Substance use: current Substance use type: marijuana Other substance usage details: Marijuana card- Smoking marijuana Last use: 04/14/21 Do You Feel Safe in your Home?: Yes Lack of Transportation: No Lack of Food: Never True Current Housing: I Have Housing Concerned About Future Housing: No Difficulty Paying Gas/Electric Bills: No Difficulty Paying for Meds: No Currently Unemployed: No Education: Associate Degree Difficulty w/ Childcare or Family Care: No Living arrangements: other Occupation/Education: occupation 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 There is no relevant family history pertinent to the presenting complaint Exam Narrative: GENERAL: Well-appearing, well-nourished, and in no acute distress. HEAD: Normocephalic EYES: PER
[2024-09-12 10:44] LABS: EDSTREPNEGPOS1 Negative (Negative)
== END 2024-09-12 10:56 | disposition home or self-care (01) ==
PROVIDERS: Emergency Provider Nurse Practitioner; PCP Family Medicine
DX: J06.9 Acute upper respiratory infection, unspecified (principal); Z79.899 Other long term (current) drug therapy; Z87.891 Personal history of nicotine dependence
CPT/HCPCS: 87081; 87880; 99213; G0463

== ENCOUNTER 2024-12-25 11:42 | Emergency (ER) | payer OTHER, SELFPAY ==
--- NOTE | 2024-12-25 12:05 | ED.URI ---
HPI - URI/Sore Throat General Chief Complaint: Upper Respiratory Infection Stated Complaint: Sore Throat/Cough Time Seen by Provider: 12/25/24 12:08 Source: patient Mode of arrival: ambulatory Limitations: no limitations History of Present Illness HPI Narrative: Kylie is a 24-year-old female patient presenting to the clinic today with complaints of sore throat, cough, congestion, and body aches. She reports symptoms started on Tuesday with a sore throat. She reports her highest temperature was 99.5? F. elicited complaint: sore throat and nasal congestion Related Data Home Medications ?Medication ?Instructions ?Recorded ?Confirmed ?Last Taken ?Type hydroxyzine HCl 50 mg tablet 50 mg PO QID 12/30/21 09/12/24 Unknown History desvenlafaxine succinate 25 mg 25 mg PO DAILY 03/13/24 09/12/24 Unknown History tablet,extended release 24 hr rimegepant 75 mg disintegrating 75 mg PO DAILY PRN Migraine 09/12/24 09/12/24 Unknown History tablet (Nurtec ODT) Headache Allergies Allergy/AdvReac Type Severity Reaction Status Date / Time sertraline (From Zoloft) AdvReac Intermediate Nausea and Verified 09/12/24 10:40 Vomiting mold AdvReac Mild Rash Verified 09/12/24 10:40 Review of Systems Review of Systems: Pertinent positives per HPI. Patient denies any fever, chills, rash, visual changes, dizziness, shortness of breath, chest pain, palpitations, nausea, vomiting, diarrhea, constipation, abdominal pain, or any urinary issues. [facility] Past Medical History Medical History Migraine COVID-19 09/2020 Bulging disc 05/2021 ADHD Bipolar disorder IBS (irritable bowel syndrome) GERD (gastroesophageal reflux disease) Anxiety Allergies Scoliosis Surgery 2013 Obesity Palpable mass of lower back History of COVID-19 Depression Hypertrophy of adenoids Surgical History Surgical History H/O toe surgery Procedure 06/08/2022 on ingrown nails. H/O excision of mass Excision of deep subcutaneous lipoma Rt. lower back -04/29/2021 H/O endoscopy [place] teeth removed 2019 History of back surgery Ancelmo placement 2012 Family History Family History Grandparent Heart disease Hypertension Cancer Father Alcoholism Depression Mother Alcoholism Depression Sibling Depression Other Pulmonary embolism Social History Social History Smoking packs per day: 0.5 Smoking cigarettes per day: 10.0 Years smoked: 4 Smoking pack-years: 2.00 Smoking status: Former smoker Tobacco type: cigarettes Smoking end date: 10/21/19 Alcohol intake: current Alcohol use details: once per month Substance use: current Substance use type: marijuana Other substance usage details: Marijuana card- Smoking marijuana Last use: 04/14/21 Do You Feel Safe in your Home?: Yes Lack of Transportation: No Lack of Food: Never True Current Housing: I Have Housing Concerned About Future Housing: No Difficulty Paying Gas/Electric Bills: No Difficulty Paying for Meds: No Currently Unemployed: No Education: Associate Degree Difficulty w/ Childcare or Family Care: No Living arrangements: other Occupation/Education: occupation Additional occupation/education comments: [employer] Spiritual care concerns: No Comments At the time of my signature, I reviewed and agree with the nursing past medical, surgical, social, and family history. There is no relevant family history pertinent to the patient complaint. Exam Narrative: General: Well-developed, morbidly obese, in no apparent distress Head: Normocephalic, atraumatic Eyes: Pupils equally round and reactive to light bilaterally, EOM intact, sclera and conjunctive clear, no discharge, lids normal Ears: TMs intact and clear, ear canals clear, no drainage, grossly hearing normal. Nose: Nares patent, clear discharge, no inflammation, no sinus tenderness. Mouth: Oral pharynx without lesions or masses, good dentition, MMM. Neck: Supple, trachea midline, no enlargement of anterior or posterior cervical nodes, no thyroid masses or goiter palpable. Cardio: Regular rate and rhythm, s1 and s2 normal, no murmur appreciated. Resp: Clear to auscultation bilaterally, no rhonchi, rales, wheezing or rubs Course Course Emergency Course: Portions of this record may have been created with voice recognition software. Level of Care: Express Care Visit Vital Signs Vital signs: Vital Signs Temperature 36.6 C 12/25/24 12:06 Pulse Rate 81 12/25/24 12:06 Respiratory Rate 16 12/25/24 12:06 Blood Pressure 123/85 12/25/24 12:06 Pulse Oximetry 100 12/25/24 12:06 Temperature 36.6 C 12/25/24 12:06 Pulse Rate 81 12/25/24 12:06 Respiratory Rate 16 12/25/24 12:06 Blood Pressure 123/85 12/25/24 12:06 Pulse Oximetry 100 12/25/24 12:06 Vital signs reviewed MDM - URI/Sore Throat MDM Narrative Medical decision making narrative: At the time of visit patient is resting comfortably on the exam table. Patient appears to be nontoxic. Labs: COVID testing was positive in the clinic today. Influenza and strep test were negative. We will send strep for culture. Plan: Patient has COVID-19. Supportive measures were discussed with the patient and they voiced understanding discharge instructions and agrees to treatment plan. Return precautions reviewed Differential Diagnosis Differential diagnosis: Likely upper respiratory infection, otitis media, sinusitis, viral infection, bronchitis, influenza, pharyngitis and other (COVID) Discharge Plan Discharge Clinical Impression: COVID-19 Patient Disposition: Home, Self-Care Condition: Stable Instructions: Antibiotic Form, How to Recover from COVID-19 at Home (ED) Additional Instructions: COVID testing is positive. Influenza testing and strep testing were negative Increase fluids and stay well hydrated Tylenol/motrin for pain/fever Flonase and OTC antihistamines as directed Vicks vapor rub to open sinuses Sinus rinses for congestion Cepacol spray, cough drops, throat lozenges, warm tea with honey/lemon, gargle salt water to soothe throat BRAT diet for diarrhea Clear liquids x 24 hours then advance as tolerated for nausea/vomiting Go to the ED if you develop a worsening in your condition- high fever not controlled by Tylenol or Motrin, dehydration, weakness, lethargy, shortness of breath, or chest pain. Follow up with your PCP in 3-5 days if symptoms persist. Patient Language: Occitan Prescriptions: No Action Nurtec ODT 75 mg tablet,disintegrating 75 mg PO DAILY PRN (Reason: Migraine Headache) clonazepam 0.5 mg tablet 0.5 mg PO .PRN Qty: 30 1RF desvenlafaxine succinate 25 mg tablet extended release 24 hr 25 mg PO DAILY hydroxyzine HCl 50 mg tablet 50 mg PO QID bupropion HCl 150 mg tablet extended release 24 hr 150 mg PO QAM Qty: 90 0RF rizatriptan [Maxalt-MECHANICAL COMMISSIONING ENGINEER] 10 mg tablet,disintegrating See Rx Instructions PO .COMPLEX Qty: 27 0RF Rx Instructions: take 1 tab at onset of headache; if no relief may repeat 1 tab after at least 2 hrs; max = 2 tabs/24 hr PO ondansetron 4 mg tablet,disintegrating 4 mg PO Q8H PRN (Reason: nausea and vomiting) Qty: 30 0RF pantoprazole 40 mg tablet,delayed release (DR/EC) 40 mg PO QAM Qty: 90 1RF meclizine 25 mg tablet 25 mg PO QID PRN (Reason: Vertigo) Qty: 120 1RF guanfacine 1 mg tablet 3 mg PO QHS Qty: 120 0RF Rx Instructions: Take 3 tab by mouth at bedtime. Increase by 1 tablet every 4 days until ADHD symptoms improve. Max dose: 4 tabs/day gabapentin 300 mg capsule 300 mg PO TID PRN (Reason: only take PRN) Qty: 90 1RF naproxen 500 mg tablet 500 mg PO BID Qty: 180 0RF Follow-up/Referrals: Vicki Espinoza DO [Primary Care Provider] - Quality NIHSS Nursing Documentation ED NIHSS nursing documentation: reviewed/agree
[2024-12-25 12:06] VITALS: BP 123/85; PULSE 81; RESP 16; TEMP 36.6; O2SAT 100
[2024-12-25 12:41] LABS: EDCOVIDSCREEN Positive (Negative); EDINFLUASCREEN Negative (Negative); EDINFLUBSCREEN Negative (Negative); EDSTREPNEGPOS1 Negative (Negative)
== END 2024-12-25 12:34 | disposition home or self-care (01) ==
PROVIDERS: Emergency Provider Nurse Practitioner Family; PCP Family Medicine
DX: U07.1 COVID-19 (principal); Z87.891 Personal history of nicotine dependence; K21.9 Gastro-esophageal reflux disease without esophagitis; E66.9 Obesity, unspecified; Z68.41 Body mass index [BMI] 40.0-44.9, adult; F41.9 Anxiety disorder, unspecified; F32.A Depression, unspecified; Z86.16 Personal history of COVID-19
CPT/HCPCS: 87081; 87426; 87804; 87880; 99213; G0463

== ENCOUNTER 2025-06-26 15:15 | Outpatient (NON) | payer OTHER, SELFPAY ==
--- OUTSIDE RECORDS SUMMARY | 2025-06-26 15:22 | XMS_ITS | Encounter Summary ---
Author Organization [facility] Address [address] Attn: [place] [address] Care Team Providers Care Inbound Customer Service Agent Name Role Phone Deb Russo MD Primary Care Provider [phone] Encounter Details Date Type Department Care Team (Late st Contact Info) Description 1999 Inpatient Historical Kristen Hartley MD [address] [place] [id number] Single liveborn, born in hospital, delivered without mention of delivery (Primary Dx) Social History Tobacco Use Types Packs/Day Years Used Date Smoking Tobacco: Never Assessed Comments Unknown Sex and Gender Information Value Date Recorded Sex Assigned at Not on file Legal Sex Female 2:41 AM 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 Gender Identity Not on file Sexual Orientation Not on file documented as of this encounter Plan of Treatment Not on file documented as of this encounter Visit Diagnoses Diagnosis Single liveborn, born in hospital, delivered without mention of delivery- Primary documented in this encounter Additional Health Concerns Infection Onset Date Last Indicated Resolved Time R/O COVID-19 10/02/2020 10/02/2020 10/02/2020 4:48 PM 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 COVID-19 10/04/2020 10/04/2020 11/03/2020 1:16 AM 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 documented as of this encounter Care Teams Inbound Customer Service Agent Relationship Specialty Start Date End Date Deb Russo MD [address] [facility] [address] [place] [id number] PCP - General Family Practice 08/21/19 documented as of this encounter
--- OUTSIDE RECORDS SUMMARY | 2025-06-26 15:22 | XMS_ITS | Encounter Summary ---
Author Organization [facility] Address [address] [place] [address] Care Team Providers Care Speed Operator Name Role Phone Deb Russo MD Primary Care Provider [phone]- [phone] Encounter Details Date Type Department Care Team (Late st Contact Info) Description 1999 Outpatient Historical [facility] - [facility] [address] [id number] Jennifer Ma MD NO ADDRESS ON FILE Social History Tobacco Use Types Packs/Day Years Used Date Smoking Tobacco: Never Assessed Comments Unknown Sex and Gender Information Value Date Recorded Sex Assigned at Not on file Legal Sex Female 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 Gender Identity Not on file Sexual Orientation Not on file documented as of this encounter Plan of Treatment Not on file documented as of this encounter Visit Diagnoses Not on filedocumented in this encounter Additional Health Concerns Infection Onset Date Last Indicated Resolved Time R/O COVID-19 10/02/2020 10/02/2020 10/02/2020 4:48 PM NAIL WELTER COVID-19 10/04/2020 10/04/2020 11/03/2020 1:16 AM NAIL WELTER documented as of this encounter Care Teams Speed Operator Relationship Specialty Start Date End Date Deb Russo MD [address] [place] [address] PCP - General Family Practice 08/21/19 documented as of this encounter
--- OUTSIDE RECORDS SUMMARY | 2025-06-26 15:22 | XMS_ITS | Clinical Summary ---
Author Organization [facility] Address [address] [place] [address] Care Team Providers Care Personnel Clerk Name Role Phone Vicki Espinoza DO Primary Care Provider [phone]- [phone] Source Comments [facility],non-owned Affiliates and Associated Physician Practices is amultiple site organization consisting of ambulatory clinics and hospital sitesin [place], [place], [place]. This disclosure is being madepursuant to the Care Everywhere program and may not contain all information available regarding this patient. Last updated 18.[facility] Allergies Active Allergy Reactions Criticality Noted Date Comments Lactose GI Discomfort Medium 01/28/2021 Zoloft Nausea and/or Vomiting,Dizziness,Headache Medium 06/18/2024 Medications * Be aware that medications may not be up to date on this document. Alwaysverify current medications with the patient. albuterol HFA (PROVENTIL; VENTOLIN; PROAIR) 108 (90 Base) MCG/ACT inhaler Inhale 2 (two) puffs by mouth every 6 hours as needed 1 Active SYMBICORT 160-4.5 MCG/ACT inhaler Inhale 2 (two) puffs by mouth 2 times daily 2 Active hydrOXYzine HCl (ATARAX) 50 MG tablet Take 1 (one) tablet by mouth 4 times daily as needed 2 Active fluticasone propionate (FLONASE) 50 MCG/ACT nasal spray Kismet 1 (one) spray into each nostril once daily 2 Active gabapentin (Neurontin) 300 MG capsule Take 1 (one) capsule by mouth 2 times daily Active naproxen (Naprosyn) 500 MG tablet Take 1 (one) tablet by mouth 2 times daily 4 Active meclizine (Antivert) 25 MG tablet Take 1 (one) tablet by mouth 2 times daily 4 Active cetirizine (ZyrTEC) 10 MG tablet Take 1 (one) tablet by mouth once daily Active Vraylar 3 MG capsule Take 1 (one) capsule by mouth once daily 4 Active buPROPion XL 24hr (Wellbutrin-XL) 300 MG tablet Take 1 (one) tablet by mouth every morning 4 Active clonazePAM (KlonoPIN) 0.5 MG tablet Take 1 (one) tablet by mouth 2 times daily Active multivitamin daily tablet Take 1 (one) tablet by mouth daily with food Active vitamin D3 (Cholecalcifero l) 25 MCG (1000 UNITS) tablet Take 5 (five) tablets by mouth once daily Active desvenlafaxine succinate ER 24hr (Pristiq) 50 MG tablet 4 Active cyanocobalamin (Vitamin B-12) 100 MCG tablet Take 1 (one) tablet by mouth once daily Active ibuprofen (Motrin) 600 MG tablet Take 1 (one) tablet by mouth every 6 hours as needed for Pain 30 tablet 4 Active oxyCODONE, immediate release, (Roxicodone) 5 MG tabletIndicatio ns:Nasal obstruction Take 1 (one) tablet by mouth every 6 hours as needed for Pain 12 tablet 4 Active Additional Information Patient not taking.Reported on 11/09/2024 acetaminophen (Tylenol) 325 MG tablet Take 2 (two) tablets by mouth every 6 hours as needed for Fever or Pain Maximum allowable Acetaminophen amount = 4 Grams (4000 mg) / 24 hours. 60 tablet 4 Active topiramate (Topamax) 25 MG tabletIndicatio ns:Vestibular migraine,Migrai ne with aura and without status migrainosus, not intractable 25 mg in am and 50 mg at night 90 tablet 5 5 Active rizatriptan (Maxalt) 10 MG tabletIndicatio ns:Vestibular migraine,Migrai ne with aura and without status migrainosus, not intractable,Jad rainous vertigo Take 1 tab by mouth once at first sign of migraine. May repeat one time after 2 hours if needed. 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 (F LUZONE; FLULAVAL; FLUARIX; AFLURIA QUADRIVALENT; 6MO+), 0.5 ML (IIV4) 11/06/2020,08/21/2019,10/08/2018 TDAP (7yrs+) 06/07/2021 Family History Medical History Relation Name Comments Cancer - Breast Maternal Grandmother In r emission Relation Name Status Comments Brother Alive Father Alive Maternal Grandmother Mother Alive Sister Alive Social History Tobacco Use Types Packs/Day Years Used Date Smoking Tobacco: Former Cigarettes 0.5 4 2 015 - 2018 Smokeless Tobacco: Never Tobacco Cessation:Counseling Given: Not Answered Alcohol Use Standard Drinks/Week Comments Yes 0 (1 standard drink = 0.6 oz pur e alcohol) rarely AUDIT-C Answer Date Recorded Q1: How often do you have a drink containing alc ohol? Monthly or less 02/23/2022 Q2: How many drinks containi ng alcohol do you have on a typical day when you are drinking? 1 or 2 02/23/2022 Q3: How often do you have si x or more drinks on one occasion? 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 Gender Identity Female 08/16/2021 8:52 PM CDT Sexual Orientation Choose not to disclose 2020 8:52 PM CDT Last Filed Vital Signs Vital Sign Reading Time Taken Comments Blood Pressure 126/84 03/11/2025 3:29 PM CDT Pulse 103 03/11/2025 3:29 PM CDT Temperature 36.2 C (97.2 F) 11/07/2024 3:31 PM COFFEE ROASTER HELPER Respiratory Rate 12 11/07/2024 4:10 PM COFFEE ROASTER HELPER Oxygen Saturation 98% 03/11/2025 3:29 PM CDT Inhaled Oxygen Concentration - - Weight 117.9 kg (260 lb) 03/11/2025 3:29 PM CDT Height 160 cm (5' 3) 03/11/2025 3:29 PM CDT Body Mass Index 46.06 03/11/2025 3:29 PM CDT Plan of Treatment Upcoming Encounters Date Type Department Care Team (Late st Contact Info) Description 09/09/2025 4:00 PM CDT Video Visit [facility] - Neurology [address] [place] [address], [place] [address] Joan Mckeon, SUPERVISOR CONCRETE STONE FABRICATING-BUTTONHOLER [address] [place] [address] [place] [address] Health Maintenance Due Date Last Done Comments HIV SCREENING 2014 HPV VACCINE (1 - 3-dose series) 2014 HEPATITIS C SCREENING 07/31/2017 HEPATITIS B VACCINE (1 of 3 - 19+ 3-dose series) 2018 CHLAMYDIA/GONORRHEA SCREENING 02/21/2019 02/21/2018 COVID-19 VACCINE (4 - 2023-2 5 season) 2024 11/05/2021, 02/26/2021, 01/29/2021 DEPRESSION SCREENING 11/21/2024 08/23/2022, 07/12/2022, 03/12/2022 PAP SMEAR 03/12/2025 03/12/2022, 10/30/2020 INFLUENZA VACCINE (#1) 2025 , 08/21/2019, 10/08/2018 DTAP/TDAP/TD VACCINES (2 - T d or Tdap) 06/07/2031 06/07/2021 ZOSTER VACCINE (1 of 2) 2049 HIB VACCINE Aged Out No longer eligi ble based on patient's age to complete this topic MENINGOCOCCAL (Group B) VACCINE SHARED DECISION-MAKING Aged Out No longer eligible based on patient's age to complete this topic MENINGOCOCCAL GROUPS A/C/Y/W VACCINE Aged Out No longer eligible b ased on patient's age to complete this topic PNEUMOCOCCAL VACCINE Aged Out No long er eligible based on patient's age to complete this topic Procedures Procedure Name Priority Date/Time Associated Diagnosis Comments PAP IG LB CT+NG+TV RFLX HPV ASCU Routine 03/12/2022 11:12 AM CDT Well woman exam with routine gynecological exam Screen for STD (sexually transmitted disease) CHLAMYDIA + GC + TRICH DNA AMPL Routine 02/21/2018 2:55 PM CDT Screen for STD (sexually transmitted disease) from Last 3 Months or Most Recently Relevant to Health Maintenance Results * PAP IG LB CT+NG+TV RFLX HPV ASCU (03/12/2022 11:12 AM CDT) Diagnosis [facility] INSURANCE BILL Comment:NEGATIVE FOR INTRAEP ITHELIAL LESION OR MALIGNANCY. Specimen Adequacy [facility] INSURANCE BILL Comment: Satisfactory for evaluation. Endocervical and/or squamous metaplastic cells (endocervical component) are present. Clinician Provided ICD10 [facility] INSURANCE BILL Comment: Z01.419 Z11.3 Performed by [facility] INSURANCE BILL Comment:Alma Rosa Ridley Cytot echnologist (ASCP) Comment . [facility] INSURANCE BILL Note [facility] INSURANCE BILL Comment: The Pap smear is a screening test designed to aid in the detection of premalignant and malignant conditions of the uterine cervix. It is not a diagnostic procedure and should not be used as the sole means of detecting cervical cancer. Both false-positive and false-negative reports do occur. . [facility] CPT Code Automation [facility] INSURANCE BILL Comment: This liquid based ThinPrep(R) pap test was screened with the use of an image guided system. Note [facility] INSURANCE BILL Comment: The HPV DNA reflex criteria were not met with this specimen result therefore, no HPV testing was performed. . Chlamydia trachomatis DYAN Negative Negative [facility] INSURANCE BILL GC DYAN Negative Negative [facility] INSURANCE BILL Trichomonas vaginalis by DYAN Negative Negative [facility] INSURANCE BILL ENTIRE ENDOCERVIX / Unknown 03/12/2022 11:12 AM CDT 03/15/2022 Narrative [facility] INSURANCE BILL - 03/18/2022 3:08 PM CDT No. of containers..01 ThinPrep Vial Resulting Agency Comment Lab Testing performed at: [address] [id number] Jennifer Aguilar MD LAB - PATHOLOGY/CYTOLOGY ORDERAB LES Final Result [facility] INSURANCE BILL [address] [place] [address] * CHLAMYDIA + GC + TRICH DNA AMPL (02/21/2018 2:55 PM CDT) Chlamydia trachomatis RNA NOT DETECTED NOT DETECTED [facility] GC RNA NOT DETECTED NOT DETECTED [facility] Please Note [facility] Comment: This test was performed using the APTIMA COMBO2 Assay ([employer] The analytical performance characteristics of this assay, when used to test SurePath specimens have been determined by [employer]. Trichomonas vaginalis RNA Qualitative NOT DETECTED NOT DETECTED [facility] Comment: This test was performed using the APTIMA(R) Trichomonas vaginalis assay ([employer](R)). For more information on this test, go to: http://education.[facility] [employer].Yeexoo/faq/Trichomonastma Test Performed at: [facility] [place] [address] [place] [address] JOE JOSHI DO,MPH Microbiology ENTIRE URETHRA / Unknown 02/21/2018 2:55 PM CDT 02/22/2018 2:15 AM CDT Jennifer Aguilar MD LAB - MICROBIOLOGY ORDERABLES Fi nal Result [facility] [address] [place] [address] from Last 3 Months or Most Recently Relevant to Health Maintenance Insurance CIGNA CIGNA Member Subscriber Plan / Payer (Ef fective 2020-Present) Name:Shantel Ledezma Relation to Subscriber:Self Name:SHANTEL LEDEZMA Payer ID:[id number] (NAIC) Type:O Address: [place] [id number] [employer] [facility] [employer] LIABILITY [employer] Liability Care Teams Personnel Clerk Relationship Specialty Start Date End Date Vicki Espinoza DO [address] [facility] [address] [place] [address] PCP - General Family Medicine 03/12/22
--- OUTSIDE RECORDS SUMMARY | 2025-06-26 15:22 | XMS_ITS | Clinical Summary ---
Author Organization [facility] Address [address] [place] [address] Care Team Providers Care Pencil Sorter Name Role Phone Deb Russo MD Primary Care Provider +1- [phone] Allergies No known active allergies Medications norethindrone-e. estradiol-iron (LO LOESTRIN FE ORAL) Take by mouth. Active lactase (LACTAID FAST ACT ORAL) Take by mouth. Active LORazepam (ATIVAN) 0.5 mg tablet TK 1 T PO ONCE D PRA /PANIC 06/11/2020 Active escitalopram oxalate (LEXAPRO) 10 mg tabletIndication s:Major depressive disorder with single episode, in partial remission Take 1 Tablet (10 mg) by mouth daily. 30 Tablet 6 06/30/2020 Active buPROPion (WELLBUTRIN) 75 mg tablet Take 1 Tablet (75 mg) by mouth daily. 30 Tablet 1 10/14/2020 Active Active Problems Problem Noted Date Diagnosed Date Anxiety state 08/21/2019 Major depressive disorder wi th single episode, in partial remission 08/21/2019 Immunizations Immunization Administration Dates Next Due INFLUENZA VACCINE QUADRIVALENT 6 MOS UP PF IM Family History Medical History Relation Name Comments Anxiety Brother Healthy Brother Healthy Father Healthy Mother Healthy Sister Relation Name Status Comments Brother Alive Father Alive Mother Alive Sister Alive Social History Tobacco Use Types Packs/Day Years Used Date Smoking Tobacco: Former Cigarettes Smokeless Tobacco: Never Tobacco Cessation:Counseling Given: Yes Alcohol Use Standard Drinks/Week Comments Yes 0 (1 standard drink = 0.6 oz pur e alcohol) Comments No Sex and Gender Information Value Date Recorded Sex Assigned at Not on file Legal Sex Female 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 Gender Identity Not on file Sexual Orientation Not on file Occupation Industry Job Start Date Job End Date student [employer] Not on file Not on file Not on file working at [employer] Not on file Not on file No t on file Last Filed Vital Signs Vital Sign Reading Time Taken Comments Blood Pressure 104/76 06/30/2020 10:57 AM CDT Pulse 74 06/30/2020 10:57 AM CDT Temperature 35.9 C (96.6 F) 06/30/2020 10:57 AM CDT Respiratory Rate 14 06/30/2020 10:57 AM CDT Oxygen Saturation 98% 06/30/2020 10:57 AM CDT Inhaled Oxygen Concentration - - Weight 100.2 kg (221 lb) 06/30/2020 10:57 AM CDT Height 161.3 cm (5' 3.5) 06/30/2020 10:57 AM CD T Body Mass Index 38.53 06/30/2020 10:57 AM CDT Plan of Treatment Health Maintenance Due Date Last Done Comments HPV VACCINES (1 - 3-dose series) 2014 DTAP/TDAP/TD VACCINES (1 - Tdap) 2018 HEPATITIS B VACCINES (1 of 3 - 19+ 3-dose series) 2018 CERVICAL CANCER SCREENING 2020 HPV/Cotest (21-29) 2020 PAP SMEAR 2020 Preventative Visit- Commercial 11/21/2024 1 12/31/2019, 06/30/2020, 08/21/2019, Additional history exists INFLUENZA VACCINE (#1) 2025 08/21/2019 Insurance [facility] OPEN ACCESS HMO Care Teams Pencil Sorter Relationship Specialty Start Date End Date Deb Russo MD [address] [place] [address] PCP - General Family Practice 08/21/19
--- OUTSIDE RECORDS SUMMARY | 2025-06-26 15:22 | XMS_ITS | Clinical Summary ---
Author Organization [facility] Address [address] [place] [address] Care Team Providers Care Open Die Inspector Name Role Phone Vicki Espinoza Primary Care Provider + Allergies Active Allergy Reactions Criticality Noted Date Comments Lactose Unknown 01/28/2021 Vancomycin Other (See comments) Low 08/06/2021 Reaction: Daniel syndrome Medications atomoxetine (STRATTERA) 25 mg capsule Take 50 mg by mouth torch operator before breakfast Active busPIRone (BUSPAR) 15 mg tablet Take 15 mg by mouth 2 (two) times a day Active hydrOXYzine (ATARAX) 10 mg tablet Take 10 mg by mouth 4 (four) times a day as needed Active norgestimate-et hinyl estradioL (ORTHO-CYCLEN) 0.25-35 mg-mcg per tablet Take 1 tablet by mouth daily Active omeprazole OTC (PriLOSEC OTC) 20 mg EC tablet Take 1 tablet by mouth daily Active Active Problems Problem Noted Date Diagnosed Date Anxiety state 08/21/2019 Major depressive disorder wi th single episode, in partial remission 08/21/2019 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 Syringomyelia 07/05/2012 Arnold-Chiari malformation 07/05/2012 Scoliosis 06/20/2012 Surgical History Surgery Date Site/Laterality Comments SPINAL FUSION WISDOM TOOTH EXTRACTION 11/21/2011 - 11/20/2012 LIPOMA RESECTION 11/21/2020 - 11/20/2021 RIGHT HIP Medical History Medical History Date Comments Depression Gastric reflux Hiatal hernia Scoliosis Family History Medical History Relation Name Comments Mental illness Brother Alcohol abuse Father Mental illness Father Alcohol abuse Mother Mental illness Mother Mental illness Sister Relation Name Status Comments Brother Father Mother Sister Social History Tobacco Use Types Packs/Day Years Used Date Smoking Tobacco: Former Cigarettes 0.3 4 2 015 - 2019 Vaping AUDIT-C Answer Date Recorded Q1: How often do you have a drink containing alc ohol? Monthly or less 08/06/2021 Q2: How many drinks containi ng alcohol do you have on a typical day when you are drinking? 1 or 2 08/06/2021 Frequency of Binge Drinking Not on file 07/22 Personal Safety Answer Date Recorded Getting School Help Needed Not on file 01/14 Comments Unknown Sex and Gender Information Value Date Recorded Sex Assigned at Not on file Legal Sex Female 5:56 AM HOT HEADER OPERATOR Gender Identity Female 08/16/2021 9:43 PM CDT Sexual Orientation Choose not to disclose 2020 9:43 PM CDT Obstetrics History Last Filed Vital Signs Vital Sign Reading Time Taken Comments Blood Pressure 120/80 10/16/2012 12:07 PM HOT HEADER OPERATOR Pulse 106 10/16/2012 12:07 PM HOT HEADER OPERATOR Temperature - - Respiratory Rate - - Oxygen Saturation 97% 10/16/2012 12:07 PM HOT HEADER OPERATOR Inhaled Oxygen Concentration - - Weight 89.4 kg (197 lb) 08/06/2021 8:33 AM CDT Height 160.7 cm (5' 3.25) 08/06/2021 8:33 AM C DT Body Mass Index 34.62 08/06/2021 8:33 AM CDT Plan of Treatment Health Maintenance Due Date Last Done Comments Cervical Cancer Screening 1999 Depression Screening 1999 Hepatitis C Screening 1999 Varicella Vaccines (1 of 2 - 13+ 2-dose series) 2012 HPV Vaccines (1 - 3-dose series) 2014 Hepatitis B Screening 2017 Regular Well Visit/Exam 18-64 2017 Covid-19 Vaccine ( season) 2024 02/26/2021, 01/29/2021 Influenza Vaccine (#1) 2025 , 11/04/2020, 08/21/2019, Additional history exists DTaP/Tdap/Td Vaccine (2 - Td or Tdap) 06/07/2031 06/07/2021 Pneumococcal vaccine <65 Aged Out No longer eligible based on patient's age to complete this topic Insurance [address] [address] OPEN ACCESS [employer] OPEN ACCESS Care Teams Open Die Inspector Relationship Specialty Start Date End Date Vicki Espinoza DO PCP - General Family Medicine 06/01/22
--- OUTSIDE RECORDS SUMMARY | 2025-06-26 15:22 | XMS_ITS | Encounter Summary ---
Author Organization [facility] Address [address] [place] [address] Care Team Providers Care Coremaker Pipe Name Role Phone Deb Russo MD Primary Care Provider +1- [phone] Encounter Details Date Type Department Care Team (Late st Contact Info) Description 1999 Outpatient Historical [facility] [address] [facility] [address] [address] Kristen Hartley MD [id number] [place], [place] [id number] Social History Tobacco Use Types Packs/Day Years Used Date Smoking Tobacco: Never Assessed Comments Unknown Sex and Gender Information Value Date Recorded Sex Assigned at Not on file Legal Sex Female 2:41 AM 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 Gender Identity Not on file Sexual Orientation Not on file documented as of this encounter Plan of Treatment Not on file documented as of this encounter Visit Diagnoses Not on filedocumented in this encounter Additional Health Concerns Infection Onset Date Last Indicated Resolved Time R/O COVID-19 10/02/2020 10/02/2020 10/02/2020 4:48 PM PHARMACY ANCILLARY COVID-19 10/04/2020 10/04/2020 11/03/2020 1:16 AM PHARMACY ANCILLARY documented as of this encounter Care Teams Coremaker Pipe Relationship Specialty Start Date End Date Deb Russo MD [address] [place] [id number] PCP - General Family Practice 10/1/19 documented as of this encounter
[2025-06-26 18:23] LABS: Add Urine Microscopic? YES; Appearance Urine Turbid (Clear); Glucose Urine UA Negative (Negative); Leukocyte Esterase Ur 3+ LEU/UL (Negative); Need Manual Microscopic Reviewed; Nitrate Urine Positive (Negative); Specific Grav Ur 1.021 (1.001-1.035)
== END 2025-06-26 15:16 | disposition home or self-care (01) ==
LOC: ANHGOSHLAB 15:16
PROVIDERS: PCP Family Medicine; Visit Provider Family Medicine
DX: R35.0 Frequency of micturition (principal)
CPT/HCPCS: 81001; 87086